=== PATIENT | female | born 1945 | race Caucasian/White ===

== ENCOUNTER 2016-12-07 16:36 | Emergency (ER) | payer SELFPAY ==
[~2016-12-07] VITALS: Ht 170.2 cm; Wt 79.5 kg
[2016-12-07 16:40] VITALS: BP 134/75; TEMP 99.2
[2016-12-07] MEDS ORDERED: ZOLOFT 100MG100 MG PO (16:44)
[2016-12-07] MEDS ORDERED: ZOCOR5 MG PO (16:45)
[2016-12-07] MEDS ORDERED: MULTI VITAMINS1 TAB PO (16:45)
[2016-12-07 17:44] VITALS: PULSE 78
== END 2016-12-07 17:44 | disposition home or self-care (01) ==
LOC: COL.ER 16:36
DX: S92.511A Displaced fracture of proximal phalanx of right lesser toe(s), initial encounter for closed fracture (principal); F32.9 Major depressive disorder, single episode, unspecified; E78.5 Hyperlipidemia, unspecified; W22.8XXA Striking against or struck by other objects, initial encounter; Y92.009 Unspecified place in unspecified non-institutional (private) residence as the place of occurrence of the external cause

== ENCOUNTER 2018-01-31 08:29 | Emergency (ER) | payer OTHER ==
[~2018-01-31] VITALS: Ht 170.2 cm; Wt 85.9 kg
[~2018-01-31 08:29] MED LIST: MULTI VITAMINS1 TAB PO; ZOCOR5 MG PO; ZOLOFT 100MG100 MG PO
[2018-01-31 08:40] VITALS: TEMP 97
[2018-01-31 08:54] LABS: BASO # 0.1 (0.0-0.2); BASO % 0.8 % (0.0-2.0); EOS # 0.2 (0.0-0.7); EOS % 3.5 % (0-4.0); GRAN # 3.5 (1.4-6.5); GRAN % 57.5 % (42.2-75.2); HEMATOCRIT 40.9 % (37.0-47.0); HEMOGLOBIN 13.9 g/dl (12.5-16.0); LYMPH # 1.9 (1.2-3.4); MEAN CELL VOLUME 91 fl (80.0-100.0); MEAN CORPUSCULAR HEMOGLOBIN 31 pg (27.0-31.0); MEAN CORPUSCULAR HGB CONC 34 g/dl (33.0-37.0); MEAN PLATELET VOLUME 10.4 fl (7.4-10.4); MONO # 0.4 (0.1-0.6); PLATELET COUNT 102 K/mm3 (130-400); RED BLOOD COUNT 4.51 M/mm3 (4.10-5.30); REDCELL DISTRIBUTION WIDTH-CV 13.2 % (11.5-14.5)
[2018-01-31 09:08] LABS: ALBUMIN 4.2 gm/dL (3.5-5.0); BILIRUBIN,TOTAL 0.5 mg/dL (0.0-1.0); C-REACTIVE PROTEIN 0.5 mg/dL (0.0-0.9); CREATININE, serum 0.93 mg/dL (0.52-1.25); POTASSIUM 4.3 mmol/L (3.4-5.0); TOTAL PROTEIN 7.2 gm/dL (6.4-8.2)
[2018-01-31] MEDS ORDERED: ANTIVERT 25MG25 MG PO (10:06)
[2018-01-31] MEDS ORDERED: PROMETHAZINE12.5 M5 PO (10:06)
[2018-01-31 11:08] VITALS: BP 148/80; PULSE 70
== END 2018-01-31 11:09 | disposition home or self-care (01) ==
LOC: COL.ER 08:29
PROVIDERS: Emergency Medicine
DX: R42 Dizziness and giddiness (principal); E78.5 Hyperlipidemia, unspecified; Z90.89 Acquired absence of other organs; Z90.49 Acquired absence of other specified parts of digestive tract
CPT/HCPCS: J2550; J7030